=== PATIENT | male | born 1965 | race Two or more races ===

== ENCOUNTER 2023-07-09 19:55 | Emergency (ER) | payer OTHER ==
[~2023-07-09] VITALS: Ht 177.8 cm; Wt 77.1 kg
[~2023-07-09 19:55] MED LIST: KETO10TA2 PO; TRILEPTAL600 MG PO; VIMPAT200 MG PO
[2023-07-09 21:14] LABS: ABG PH 7.422 (7.35-7.45); ABG PO2 94.1 mmHg (80-100); SaO2 97.5 %; Tco2 29.4 mmol/l
[2023-07-09 22:55] LABS: allen test SATISFACTORY; o2 21 %; puncture site RADIAL RIGHT
== END 2023-07-09 21:33 | disposition home or self-care (01) ==
LOC: ER 19:55
PROVIDERS: General Practice
DX: R06.02 Shortness of breath (principal)

== ENCOUNTER → 2025-04-09 | Emergency (ER) | payer OTHER ==
[~2025-04-09] VITALS: Ht 177.8 cm; Wt 74.4 kg
[~2025-04-09] MED LIST changes: +AMLODIPINE-OLM1 EAC1 PO; +COZAAR25 MG PO; +TAMS0.4C PO
[2025-04-09 10:32] LABS: BASO % 0.5 % (0.1-1.2); EOS # 0.20 (0.04-0.54); EOS % 5.4 % (0.7-7.0); LYMPH # 1.43 (1.18-3.74); LYMPH % 38.3 % (19.3-53.1); MEAN PLATELET VOLUME 9.50 fl (9.4-12.4); MONO # 0.38 (0.24-0.82); MONO % 10.2 % (4.7-12.5); NEUT # 1.69 (1.56-6.13); NEUT % 45.3 % (34.0-71.1); RED CELL DISTRIBUTION WIDTH 12.3 % (11.6-14.4)
[2025-04-09 11:18] LABS: BUN CREA RATIO 22.0 (7.0-25.0); CREATININE SERUM 0.73 mg/dL (0.70-1.30); GFR 109.23; GLUCOSE FASTING 105.0 mg/dL (65-100); OSMOLALITY SERUM 285.0 MOSM/KG (275-295); TSH 1.08 uIU/mL (0.358-3.74)
== END | disposition home or self-care (01) ==
LOC: ER 09:38
PROVIDERS: Emergency Medicine
DX: R00.2 Palpitations (principal)